=== PATIENT | male | born 1995 | race Two or more races ===

== ENCOUNTER 2024-10-29 13:33 | Emergency (ER) | payer MEDICAID, OTHER ==
[~2024-10-29] VITALS: Ht 172.7 cm; Wt 90.9 kg
--- NOTE | 2024-10-29 14:23 | ED.PDOC ---
Musculoskeletal HPI Comments This is a 28 year old male presenting to the ED with chief complaint of right ankle pain. Patient reports that he had injured his right ankle in a fall on Monday, being seen in an ED and was diagnosed with an ankle fracture at the time. Patient relays that his PCP then ordered an XR to be performed today, however, at the office, the staff did not reapply his splint properly and he is now experiencing 10/10 pain to his right ankle and foot. Patient denies any numbness, weakness, tingling, or further injury. Chief Complaint: Lower Extremity Time Seen by MD: 14:15 Reviewed Notes: Nurses Notes, Medications, Allergies Allergies: Coded Allergies: NO KNOWN ALLERGIES (Unverified , 10/29/24) Information Source: Patient Mode of Arrival: Wheelchair Location: Right Extremity Location: Ankle Timing: Days Prehospital treatment: None Severity: Severe Able to Move Extremity: No Bear Weight: No Pain: Severe Mechanism: Twisting Circumstances: Fall Onset of Symptoms: After Trauma Symptoms: Swelling, Pain, Erythema DVT Risk Factors: NONE Last Tetanus: UTD Associated signs and symptoms: Ankle pain Past Medical History PAST MEDICAL HISTORY: Denies Surgical History: Denies all surgeries Family History Family History: Reviewed,noncontributory to illness Social History Smoker: Non-Smoker Alcohol: Denies ETOH Use Drugs: Denies Drug Use Lives In: Home Constitutional: denies: chills, diaphoresis, fatigue, fever, malaise, sweats, weakness, others EENTM: denies: blurred vision, double vision, ear bleeding, ear discharge, ear drainage, ear pain, ear ringing, eye pain, eye redness, hearing loss, mouth pain, mouth swelling, nasal discharge, nose bleeding, nose congestion, nose pain, photophobia, tearing, throat pain, throat swelling, voice changes, others Respiratory: denies: cough, hemoptysis, orthopnea, SOB at rest, shortness of breath, SOB with excertion, stridor, wheezing, others Cardiovascular: denies: chest pain, dizzy spells, diaphoresis, Dyspnea on exertion, edema, irregular heart beat, left arm pain, lightheadedness, palpitations, PND, syncope, others Gastrointestinal: denies: abdomen distended, abdominal pain, blood streaked bowels, constipated, diarrhea, dysphagia, difficulty swallowing, hematemesis, melena, nausea, poor appetite, poor fluid intake, rectal bleeding, rectal pain, vomiting, others Genitourinary: denies: burning, dysuria, flank pain, frequency, hematuria, incontinence, penile discharge, penile sore, pain, testicle pain, testicle swelling, urgency, others Neurological: denies: dizziness, fainting, headache, left sided numbness, left sided weakness, numbness, paresthesia, pre-existing deficit, right sided numbness, right sided weakness, seizure, speech problems, tingling, tremors, weakness, others Musculoskeletal: reports: others (Right ankle pain); denies: back pain, gout, joint pain, joint swelling, muscle pain, muscle stiffness, neck pain Integumetry: reports: bruises; denies: change in color, change in hair/nails, dryness, laceration, lesions, lumps, rash, wounds, others Allergic/Immunocompromised: denies: Difficulty Healing, Frequent Infections, Hives, Itching, others Hematologic/Lymphatic: denies: anemia, blood clots, easy bleeding, easy bruising, swollen glands, others Endocrine: denies: excessive hunger, excessive sweating, excessive thirst, excessive urination, flushing, intolerance to cold, intolerance to heat, unexplained weight gain, unexplained weight loss, others Psychiatric: denies: anxiety, bipolar disorder, depression, hopeless, panic disorder, schizophrenia, sleepless, suicidal, others All Other Systems: Reviewed and Negative Physical Exam General Appearance: No Apparent Distress, Normal HEENT: Normal ENT Inspection, Pharynx Normal, TMs Normal Neck: Full Range of Motion, Non-Tender, Normal, Normal Inspection Respiratory: Chest Non-Tender, Lungs Clear, No Accessory Muscle Use, No Respiratory Distress, Normal Breath Sounds Cardiovascular: No Edema, No JVD, No Murmur, No Gallop, Normal Peripheral Pulses, Regular Rate/Rhythm Breast Exam: Deferred Gastrointestinal: No Organomegaly, Non Tender, No Pulsatile Mass, Normal Bowel Sounds, Soft Genitalia: Deferred Pelvic: Deferred Rectal: Deferred Extremities: No calf tenderness, Normal capillary refill, Normal inspection, Normal range of motion, Non-tender, No pedal edema Musculoskeletal : Apperance: Normal Neurologic: Alert, virtualization engineer II-XII nml as Tested, No Motor Deficits, Normal Affect, Normal Mood, No Sensory Deficits Cerebellar Function: Normal Reflexes: Normal Skin: Dry, Normal Color, Warm Lymphatic: No Adenopathy Was a procedure done? Was a procedure done?: No Differential Diagnosis EXT Differential Diagnosis: Fracture, Sprain, Dislocation, Contusion, Strain X-Ray, Labs, Meds, VS Vital Signs Date Time Temp Pulse Resp B/P (MAP) Pulse Ox O2 Delivery O2 Flow Rate FiO2 10/29/24 13:34 98.2 127 18 154/88 98 98.2 Current Medications Medications (Trade) Dose Ordered Sig/Kendra Route Start Time Stop Time Status Last Admin Acetaminophen/ Hydrocodone Bitart ([place] 10/325MG Tab) 1 tab ONCE ONCE PO 10/29/24 14:15 10/29/24 14:16 DC 10/29/24 14:40 [place] [address] Ph: [phone] DIAGNOSTIC IMAGING Diagnostic Imaging Report : [id number] Signed PATIENT: SILVINO STEEN ACCT: [id number] UNIT: [id number] : 1995 LOC: ER ROOM / BED: / AGE / SEX: 28 / M ADM STATUS: REG ER SERVICE 1548 ORDERING PHYSICIAN: SCAR SOLIS NP PROCEDURE(s): RANKL - R ANKLE 3 VIEW REASON: Fracture ORDER NUMBER(s): [id number], ACCESSION NUMBER(s): [id number] CLINICAL HISTORY: Fracture TECHNIQUE: 3 views of the right ankle were obtained. COMPARISON: CT CT R ANKLE WO CONTRAST on DOS: 10/29/24 FINDINGS: There is an acute oblique mildly displaced fracture of the distal fibula which originates above the ankle joint and terminates at the level of the ankle joint. There is widening of the medial clear space measuring 8.8 mm. There is a 3 mm well corticated ossific density adjacent to the medial malleolus. There diffuse soft tissue swelling. There is widening of the tibiotalar joint space. IMPRESSION: Acute distal fibular fracture with deltoid ligamentous tear. Diffuse soft tissue swelling. Widened tibiotalar joint. Well corticated 3 mm ossific density adjacent to the lateral malleolus, favor old fracture. ATED BY: ADITHYA CARDOSO MD DICTATED DATE/TIME: 10/29/24 163 SIGNED BY: ADITHYA CARDOSO MD SIGNED DATE/TIME: 10/29/24 163 CC: [address] [address] Ph: [phone] DIAGNOSTIC IMAGING Diagnostic Imaging Report : [id number] Signed PATIENT: SILVINO STEEN ACCT: [id number] UNIT: [id number] : 1995 LOC: ER ROOM / BED: / AGE / SEX: 28 / M ADM STATUS: REG ER SERVICE 1413 ORDERING PHYSICIAN: SCAR SOLIS NP PROCEDURE(s): RLDVT - RT Lower DVT REASON: R/o DVT ORDER NUMBER(s): [id number], ACCESSION NUMBER(s): [id number] RIGHT lower extremity venous duplex Clinical History: R/o RIGHT DVT Comparison: None Technique: Duplex Doppler evaluation of the deep venous systems of RIGHT lower extremities from the common femoral veins to the popliteal veins including color Doppler and spectral/pulsed waveform analysis was performed. Findings: RIGHT SIDE: The common femoral vein demonstrates appropriate compressibility and waveform variability. There is compressibility/patency of the great saphenous vein at the proximal thigh. The femoral vein demonstrates appropriate compressibility and waveform variability. The deep femoral vein demonstrates appropriate compressibility and waveform variability. The popliteal vein demonstrates appropriate compressibility and waveform variability. There is normal compressibility at the tibioperoneal trunk. Impression: 1. No right femoropopliteal venous thrombosis. 2. 2.6 CM LYMPH NODE IN THE RIGHT INGUINAL AREA 3. PATIENT HAS BROKEN RIGHT ANKLE 4 DAYS AGO. ATED BY: FIDENCIO VASQUEZ Jr., DO DICTATED DATE/TIME: 10/29/248 SIGNED BY: FIDENCIO VASQUEZ Jr., DO SIGNED DATE/TIME: 10/29/241447 CC: [address] [address] Ph: [phone] DIAGNOSTIC IMAGING Diagnostic Imaging Report : [id number] Signed PATIENT: SILVINO STEEN ACCT: [id number] UNIT: [id number] : 1995 LOC: ER ROOM / BED: / AGE / SEX: 28 / M ADM STATUS: REG ER SERVICE 1413 ORDERING PHYSICIAN: SCAR SOLIS NP PROCEDURE(s): RANCT - CT R ANKLE WO CONTRAST REASON: Fracture? ORDER NUMBER(s): [id number], ACCESSION NUMBER(s): [id number] EXAM: CT CT R ANKLE WO CONTRAST INDICATION: Fracture TECHNIQUE: Axial images of right ankle without contrast have been obtained along with coronal and sagittal reformatted images. All CT scans at this facility use dose modulation, iterative reconstruction, and/or weight based dosing when appropriate to reduce radiation dose to as low as reasonably achievable. COMPARISON: None FINDINGS: BONES: Comminuted fracture with small fracture fragments along the medial malleolus. Oblique minimally displaced and distracted distal fibular fracture with syndesmotic and intra-articular extension. MUSCLES: No abnormal attenuation. JOINT SPACES: Trace tibiotalar joint effusion TENDONS/LIGAMENTS: No definitive disruption of the visualized tendons however likely disruption of the anterior talofibular ligament. Widening of the medial clear space with the adjacent fracture fragments compatible with a avulsive injury OTHER: Surrounding subcutaneous tissue edema. No drainable fluid collection. Superficial varicosities. IMPRESSION: 1. mminuted fracture with small fracture fragments along the medial malleolus. Oblique minimally displaced and distracted distal fibular fracture with syndesmotic and intra-articular extension. ATED BY: ADITHYA CARDOSO MD DICTATED DATE/TIME: 10/29/24 1501 SIGNED BY: ADITHYA CARDOSO MD SIGNED DATE/TIME: 10/29/24 1501 CC: X-Ray, Labs, Meds, VS Comment This is a 28 year old male presenting to the ED with chief complaint of right ankle pain. Patient arrives alert and oriented, ABC's intact, afebrile, vital signs stable, saturating well in room air Diagnostic imaging ordered by me and results interpreted by radiology : Right ankle CT, Rt Ankle XR, RLE DVT US Patient was given: [place] 10/325mg PO. Tolerated medications with no adverse reaction. 1640: Spoke with Ortho jewelry consultant regarding the patient case and he advises that despite the patient requiring surgery for his fractures, the soft tissue swelling is too great and he will need to follow up outpatient at this time. No admission required. Ortho states they have patient's contact number and will be calling him some time soon. Additional MDM Review of External, Non-ED records: External records reviewed. Discussion with independent historian (EMS, family) history obtained from the patient/parents (if applicable) at bedside Chronic conditions affecting care: None Social determinants of health affecting care: None Consideration of admission (observation or admission): I considered escalation of care to admission for this patient, however given the reassuring workup, the patient is safe for outpatient management. Discussion with the Radiology: No Time of 1ST Reevaluation: 15:15 Reevaluation 1ST: Improved Patient Education/Counseling: Diagnosis, Treatment Family Education/Counseling: No Family Present Departure 1 Departure Time of Disposition: 16:46 Impression: Primary Impression: Fractured medial malleolus Qualified Codes: S82.54XA - Nondisplaced fracture of medial malleolus of right tibia, initial encounter for closed fracture Additional Impression: Fracture of distal fibula Qualified Codes: S82.831A - Other fracture of upper and lower end of right fibula, initial encounter for closed fracture Disposition: 01 HOME / SELF CARE / HOMELESS Condition: Stable e-Prescriptions Ibuprofen (Ibuprofen) 800 Mg Tab 1 TAB PO TID for 10 Days, #30 TAB 0 Refills Prov: SCAR SOLIS NP 10/29/24 Hydrocodone-Acetaminophen (Hydrocodone Bitartrate/AC 5-325 mg) 1 Tab Tab 1 TAB PO Q8HP PRN for 4 Days, #12 TAB 0 Refills Prov: SCAR SOLIS CERTIFIED FIRE INVESTIGATOR 10/29/24 Discharged With: Self Critical Care Note Critical Care Time?: No Stability Stability form required: No Heart Score Heart Score: Heart Score Response (Comments) Value History N/A 0 EKG N/A 0 Age N/A 0 Risk Factors N/A 0 Troponin N/A 0 Total 0 I personally scribed for SCAR SOLIS CERTIFIED FIRE INVESTIGATOR ([email or web address]) on 10/29/24 at 14:23. Electronically submitted by Chuck Cee ([email or web address]). I personally scribed for SCAR SOLIS CERTIFIED FIRE INVESTIGATOR ([email or web address]) on 10/29/24 at 16:48. Electronically submitted by Chuck Cee ([email or web address]). SCAR SOLIS NP Oct 29, 2024 14:23
[2024-10-29] MEDS: HYDROcodone-ACET 10/325MG TAB PO ONE (14:40)
--- NOTE | 2024-10-29 14:51 | DVH ---
RIGHT lower extremity venous duplex Clinical History: R/o RIGHT DVT Comparison: None Technique: Duplex Doppler evaluation of the deep venous systems of RIGHT lower extremities from the common femor al veins to the popliteal veins including color Doppler and spectral/pulsed waveform analysis was per formed. Findings: RIGHT SIDE: The common femoral vein demonstrates appropriate compressibility and waveform variability. There is compressibility/patency of the great saphenous vein at the proximal thigh. The femoral vein demonstrates appropriate compressibility and waveform variability. The deep femoral vein demonstrates appropriate compressibility and waveform variability. The popliteal vein demonstrates appropriate compressibility and waveform variability. There is normal compressibility at the tibioperoneal trunk. Impression: 1. No right femoropopliteal venous thrombosis. 2. 2.6 CM LYMPH NODE IN THE RIGHT INGUINAL AREA 3. PATIENT HAS BROKEN RIGHT ANKLE 4 DAYS AGO.
--- NOTE | 2024-10-29 15:03 | DVH ---
EXAM: CT CT R ANKLE WO CONTRAST INDICATION: Fracture TECHNIQUE: Axial images of right ankle without contrast have been obtained along with coronal and sag ittal reformatted images. All CT scans at this facility use dose modulation, iterative reconstruction , and/or weight based dosing when appropriate to reduce radiation dose to as low as reasonably achiev able. COMPARISON: None FINDINGS: BONES: Comminuted fracture with small fracture fragments along the medial malleolus. Oblique minimall y displaced and distracted distal fibular fracture with syndesmotic and intra-articular extension. MUSCLES: No abnormal attenuation. JOINT SPACES: Trace tibiotalar joint effusion TENDONS/LIGAMENTS: No definitive disruption of the visualized tendons however likely disruption of th e anterior talofibular ligament. Widening of the medial clear space with the adjacent fracture fragme nts compatible with a avulsive injury OTHER: Surrounding subcutaneous tissue edema. No drainable fluid collection. Superficial varicositie s. IMPRESSION: 1. mminuted fracture with small fracture fragments along the medial malleolus. Oblique minimally disp laced and distracted distal fibular fracture with syndesmotic and intra-articular extension.
--- NOTE | 2024-10-29 16:37 | DVH ---
CLINICAL HISTORY: Fracture TECHNIQUE: 3 views of the right ankle were obtained. COMPARISON: CT CT R ANKLE WO CONTRAST on DOS: 10/29/24 FINDINGS: There is an acute oblique mildly displaced fracture of the distal fibula which originates above the a nkle joint and terminates at the level of the ankle joint. There is widening of the medial clear spac e measuring 8.8 mm. There is a 3 mm well corticated ossific density adjacent to the medial malleolus. There diffuse soft tissue swelling. There is widening of the tibiotalar joint space. IMPRESSION: Acute distal fibular fracture with deltoid ligamentous tear. Diffuse soft tissue swelling. Widened tibiotalar joint. Well corticated 3 mm ossific density adjacent to the lateral malleolus, favor old fracture.
[2024-10-29] MEDS ORDERED: IBUP-1456 PO (16:52)
[2024-10-29] MEDS ORDERED: HYDR-4902 PO (16:52)
[2024-10-29 17:14] VITALS: BP 129/78; PULSE 68; RESP 16; TEMP 98.7; O2SAT 97
== END 2024-10-29 17:17 | disposition home or self-care (01) ==
LOC: ER 13:33
DX: S82.51XA Displaced fracture of medial malleolus of right tibia, initial encounter for closed fracture (principal); S82.831A Other fracture of upper and lower end of right fibula, initial encounter for closed fracture; X58.XXXA Exposure to other specified factors, initial encounter; Y93.89 Activity, other specified; Y92.89 Other specified places as the place of occurrence of the external cause; Y99.8 Other external cause status
CPT/HCPCS: 29515; 73610; 73700; 93971

== ENCOUNTER 2024-11-12 10:00 | Day surgery (SDC) | payer MEDICAID ==
[2024-11-06 10:30] LABS: Hematocrit 46.5 % (41.0-53.0); Hemoglobin 16.5 g/dL (13.5-17.5); Mean Corpuscular Hemoglobin 32.1 pg (28.0-32.0); Mean Corpuscular Volume 90.4 fL (80.0-100.0); Nucleated Red Blood Cells % 0.0 %
[2024-11-06 10:31] LABS: Urine Protein, UAD Negative (Negative)
[2024-11-06 11:02] LABS: INR 0.93 (0.9-1.15); Partial Thromboplastin Time 28.2 SEC (24.5-34.5); Prothrombin Time 9.9 sec (9.3-11.8)
[2024-11-06 11:16] LABS: Alanine Aminotransferase 19 U/L (7-40); Albumin 4.7 g/dL (3.2-4.8); Anion Gap 8 (5-15); BUN/Creatinine Ratio 14.0 (10.0-20.0); Bilirubin, Total 0.9 mg/dL (0.2-1.0); Blood Urea Nitrogen 16 mg/dL (9-23); Calcium 9.3 mg/dL (8.7-10.4); Carbon Dioxide 28 mmol/L (20-31); Chloride 102 mmol/L (98-107); Glucose 94 mg/dL (74-106); Potassium 4.6 mmol/L (3.5-5.1); Sodium 138 mmol/L (136-145); Total Protein 7.1 g/dL (5.7-8.2)
[2024-11-06 11:26] LABS: Alkaline Phosphatase 42 U/L (46-116)
[~2024-11-12] VITALS: Ht 172.7 cm; Wt 90.7 kg
[~2024-11-12 10:00] MED LIST: GLYCOPYRROLATE 0.2 MG/ML 1ML VIAL ONE; HYDR-4902 PO; HYDROmorphone HCL 2 MG/ML VL/or syr ONE; IBUP-1456 PO; KETAMINE 50mg/ML 1ml syringe ONE; KETOROLAC TROMETH 30 MG/ML 1ML VIAL ONE; LIDOCAINE 2% (LOCAL ANESTH.) PF 5ml SDV ONE; MIDAZOLAM HCL 2MG/2ML 2ml VIAL (1mg/ml) ONE; ONDANSETRON HCL 4 MG/2 ML VIAL ONE; PROPOFOL 10 MG/ML 20 ML IV ONE; fentaNYL CITRATE 100 MCG/2 ML VL ONE
[2024-11-12] MEDS ORDERED: LIDOCAINE 1% INJ PF 5ML AMP ONE (10:47)
[2024-11-12] MEDS ORDERED: BUPIVACAINE 0.25% INJ 50ML VIAL ONE (11:08)
[2024-11-12] MEDS: ceFAZolin 2 GM/D5W50ml 50 ML IV ONE (12:00)
[2024-11-12] MEDS ORDERED: fentaNYL CITRATE 100 MCG/2 ML VL ONE (13:10)
--- NOTE | 2024-11-12 13:49 | DVH ---
C-ARM FLUOROSCOPY: PROCEDURE: ankle orif FLUOROSCOPY TIME: 56 sec DAP: 0.91 mgy FINDINGS: Spot intraoperative C arm radiographs demonstrating ankle orif . IMPRESSION: Please refer to surgical report for detailed findings.
[2024-11-12 13:52] VITALS: BP 120/74; PULSE 102; RESP 16; TEMP 97.7; O2SAT 99
[2024-11-12] MEDS ORDERED: HYDROmorphone HCL 2 MG/ML VL/or syr IV PRN (14:15)
[2024-11-12] MEDS ORDERED: ONDANSETRON HCL 4 MG/2 ML VIAL IV PRN (14:15)
[2024-11-12] MEDS ORDERED: ACETAMINOPHEN IV 100 ML IV ONE (14:16)
[2024-11-12] MEDS: ACETAMINOPHEN IV 1000 MG/100ML (10MG/ML) IV ONE (14:25)
--- NOTE | 2024-11-13 04:00 | DVHOP ---
DATE OF SURGERY: 11/12/2024 PREOPERATIVE DIAGNOSIS: Right lateral malleolus fracture with syndesmotic disruption. POSTOPERATIVE DIAGNOSIS: Right lateral malleolus fracture with syndesmotic disruption. PROCEDURE PERFORMED: Right lateral malleolus open reduction and internal fixation along with syndesmotic fixation. ANESTHESIA: General with popliteal nerve block. COMPLICATIONS: None. DRUG DEPARTMENT WORKER: REG FRY PA-C IMPLANTS USED: Cody lateral locking plate with syndesmotic SutureTape fixation with buttons. INDICATION FOR PROCEDURE: The patient is a 29-year-old male who presented to the Emergency Room with a history of ankle injury. Lateral malleolus spiral fracture which was displaced and significant widening of the mortise was noted due to the translation of the talus. Nonoperative and operative management options were discussed. Given that the patient is young and active, surgery in the form of lateral malleolus open reduction, internal fixation with syndesmotic suture fixation was discussed with him. Benefits, risks, and treatment alternatives were discussed. Specific complications of the surgery such as neurovascular injury, infection, arthrofibrosis, loss of limb or life were discussed. He decided to proceed with surgery. PROCEDURE IN DETAIL: The patient was identified in the preoperative holding area and the surgical site was marked. The consent was verified. He was brought into the operating room and placed supine on the operating table. General anesthesia was then administered. Intravenous antibiotics were given. Extremities were prepped and draped in the usual sterile manner. A timeout was called out to confirm the identity of the patient, the nature of surgery, the site of surgery, the availability of implants and x-rays and allergies to medications. A standard lateral approach was used to the distal fibula. An incision was made over the skin. The skin and the subcutaneous tissue were dissected. Deep fascia was incised. The periosteum was elevated off the distal fibula. Fracture was identified. This was a long spiral. The hematoma was removed. Blood clots were removed. I decided to proceed with a lag interfragmentary screw. The fracture was now reduced with the help of the clamp. A 2.7 mm drill was used to drill the proximal cortex. A 2.0 mm drill was used to drill the far cortex. A 2.7 mm screw was inserted for excellent fixation. Next, I decided to use a plate. This was a locking plate. This was placed on the distal fibula and the lateral malleolus. The proximal and distal screws were first inserted for excellent fixation and contoured. Next, several distal locking screws were inserted. Two more bicortical proximal screws were inserted as well for excellent fixation. Syndesmotic SutureTape fixation was also used. A drill was used as per hydroelectric operator's guidelines. This was inserted through the fibula and the tibia. This was 30 degrees and directed anteriorly from the fibula to the tibia. It exited out safely on the medial aspect. Syndesmotic suture fixation device was inserted and deployed on the other side. Adjustable loop was pulled from the fibular side to approximate the syndesmosis for excellent syndesmotic fixation and reduction as well. Irrigation was given at multiple intervals. Betadine irrigation was also given. AP, lateral, and mortise views were obtained throughout the procedure, confirmed the reduction and the trajectory of the screws. These were found to be satisfactory. Deep periosteum was closed with 0 Vicryl. The skin and subcutaneous tissues were closed with 2-0 Vicryl and 3-0 Monocryl. Sterile dressing was applied. The leg was placed in a splint. DISPOSITION: Good, the patient was extubated and taken to recovery room without complications. PLAN: To have the patient follow up in a week. Toe-touch weightbearing. May range of motion outside the brace. Follow up in 2 weeks for suture removal. MD RUBY Shah/CARLINE/JONNATHAN/YAA TID: [id number] RECEIPT: [id number] [facility]
== END 2024-11-12 14:52 | disposition home or self-care (01) ==
LOC: SUR 10:00
PROVIDERS: ATTEND Orthopaedic Surgery Sports Medicine
DX: S82.61XA Displaced fracture of lateral malleolus of right fibula, initial encounter for closed fracture (principal); S93.431A Sprain of tibiofibular ligament of right ankle, initial encounter; S82.441A Displaced spiral fracture of shaft of right fibula, initial encounter for closed fracture; G89.18 Other acute postprocedural pain; Z79.899 Other long term (current) drug therapy; X58.XXXA Exposure to other specified factors, initial encounter; Y93.89 Activity, other specified; Y92.89 Other specified places as the place of occurrence of the external cause; Y99.8 Other external cause status
CPT/HCPCS: 27792; 27829; 36415; 64450; 73600; 76942; 80053; 81001; 85025; 85610; 85730; C1713; J0690; J1100; J1171; J1885; J2003; J2250; J2405; J2704; J3010; 76000; J0131; J3490